=== PATIENT | male | born 1980 | race American Indian/Alaskan Native ===

== ENCOUNTER 2017-09-02 19:15 | Emergency (ER) | payer SELFPAY ==
--- NOTE | 2017-09-02 20:11 | XRay Report ---
FINAL REPORT PROCEDURE: XR SHOULDER 2+V LT TECHNIQUE: LEFT shoulder radiographs including AP views in internal and external rotation and abduction. CPT 60514 HISTORY: shoulder deformitiy COMPARISON: No prior studies are available for comparison. FINDINGS: Fracture (s) and/or Dislocation(s): Anterior-inferior dislocation of left glenohumeral joint is noted. An acute fracture is not identified.. Joint space(s): Normal . Soft tissues: Normal . Bone mineralization: Normal . Foreign bodies: None . IMPRESSION: Glenohumeral dislocation.
[2017-09-02] MEDS ORDERED: KETALAR IV ONE (20:23)
[2017-09-02] MEDS ORDERED: DIPRIVAN 10 MG/ML IV ONE (20:23)
--- NOTE | 2017-09-02 20:24 | Emergency Department Report ---
HPI - General Chief Complaint: Shoulder Injury - HPI HPI: This is a 37-year-old male presents to the emergency department with left shoulder pain and suspected dislocation after the patient was playing basketball and was swatting at the basketball. All of a sudden he had a sharp pain and decreased range of motion. He has no previous history of dislocation. He denies any past medical history. He is right-hand dominant. He did not take anything for symptoms prior to presentation. ED Past Medical Hx - Past Medical History Previous Medical History?: No - Surgical History Past Surgical History?: Yes Additional Surgical History: hernia - Social History Smoking Status: Never Smoker Substance Use Type: None - Medications Home Medications: Home Medications Medication Instructions Recorded Confirmed Last Taken Type No Known Home Medications [No 09/02/17 09/02/17 Unknown History Reported Home Medications] ED Review of Systems ROS: Stated complaint: DISLOCATED SHOULDER Other details as noted in HPI Comment: All other systems reviewed and negative Constitutional: denies: chills, fever Eyes: denies: eye pain, eye discharge, vision change ENT: denies: ear pain, throat pain Respiratory: denies: cough, shortness of breath, wheezing Cardiovascular: denies: chest pain, palpitations Gastrointestinal: denies: abdominal pain, nausea, diarrhea Genitourinary: denies: urgency, dysuria Musculoskeletal: arthralgia. denies: back pain Skin: denies: rash, lesions Neurological: denies: headache, weakness, paresthesias Physical Exam - Physical Exam Vital Signs: Vital Signs 09/02/17 19:34 Temperature 97.6 F Pulse Rate 96 H Respiratory 18 Rate Blood Pressure 136/73 O2 Sat by Pulse 98 Oximetry Physical Exam: GENERAL: The patient is well-developed well-nourished. HENT: Normocephalic. Atraumatic. Patient has moist mucous membranes. EYES: Extraocular motions are intact. Pupils equal reactive to light bilaterally. NECK: Supple. Trachea is midline. CHEST/LUNGS: Clear to auscultation. There is no respiratory distress noted. HEART/CARDIOVASCULAR: Regular. There is no tachycardia. There is no murmur. ABDOMEN: Abdomen is soft, nontender. Patient has normal bowel sounds. There is no abdominal distention. SKIN: Skin is warm and dry. NEURO: The patient is awake, alert, and oriented. The patient is cooperative. The patient has no focal neurologic deficits. The patient has normal speech and gait. MUSCULOSKELETAL: There is some tenderness palpation to the left shoulder. He is holding the left arm against his body and internal rotation. Decreased range of motion of the left arm secondary to pain. Radial pulse +2 over 4 bilaterally. Cap refill less than 2 seconds. ED Course Vital Signs 09/02/17 19:34 Temperature 97.6 F Pulse Rate 96 H Respiratory 18 Rate Blood Pressure 136/73 O2 Sat by Pulse 98 Oximetry - Moderate Sedation Indications: fracture/dislocation redu ASA Class: I Mallampati Airway Score: 1 Preparation: monitor worker applied, pulse oximeter, capnometry used, supplemental O2 applied, suction/airway equipment at bedside, IV secured Ketamine: IV Ketamine Dose: 50 IV Propofol Dose (mgs): 50 Complications: none Patient Tolerated Procedure: well - Orthopedic Joint Reduction Joint #1 Consent Obtained: written consent Time Out Performed: Yes Side: left Joint Reduction Location: shoulder Analgesia: moderate sedation Shoulder Technique Used (if applicable): traction/counter-traction, external rotation Post-Reduction Neuro Exam: intact Post-Reduction Vascular Exam: intact Post Reduction X-Ray Obtained: Yes Post Reduction X-Ray Results: reduced Splint Applied: Yes Patient Tolerated Procedure: well ED Medical Decision Making - Radiology Data Radiology results: image reviewed interpreted by me: Left shoulder x-ray #1 shows a anterior inferior glenohumeral head dislocation Left shoulder x-ray #2 shows appropriate reduction of the humerus into the glenohumeral joint. - Medical Decision Making Patient presents with a left shoulder dislocation. No obvious fracture. There was appropriate monitoring and the patient had moderate sedation with success. I used some traction and external rotation and there was successful reduction of the dislocation. This was confirmed with x-ray. The patient was monitored for another 30 minutes and he has fully come out of any type of sedation. He is in a shoulder immobilizer and realizes he should stay in that until follow- up with orthopedist. Given multiple orthopedist referrals. He is neurovascularly intact both before and after the procedure. Vital signs stable. - Differential Diagnosis fracture, dislocation, contusion, sprain, strain Critical Care Time: No Critical care attestation.: If time is entered above; I have spent that time in minutes in the direct care of this critically ill patient, excluding procedure time. ED Disposition Clinical Impression: Dislocation of left shoulder joint Qualifiers: Encounter type: initial encounter Qualified Code(s): S43.005A - Unspecified dislocation of left shoulder joint, initial encounter Disposition: TO HOME OR SELFCARE Is pt being admited?: No Condition: Stable Instructions: Shoulder Dislocation (ED) Additional Instructions: Please follow up with an orthopedist in the next few days. Stay in the shoulder sling/immobilizer until follow-up with the orthopedist. I have given you a few different referrals. You can use ice for the inflammation but not directly against the skin. Return to the emergency Department with any worsening of your symptoms or any acute distress. Referrals: TRE HERNANDEZ MD [Staff Physician] - 3-5 Days [facility] [Provider Group] - 3-5 Days Time of Disposition: 22:03
--- NOTE | 2017-09-02 21:34 | XRay Report ---
FINAL REPORT PROCEDURE: XR SHOULDER 1V LT TECHNIQUE: LEFT shoulder radiograph, single frontal view. HISTORY: post left shoulder reduction COMPARISON: No prior studies are available for comparison. FINDINGS: Fracture(s): None. Joint space(s): Normal. Soft tissues: Normal. Bone mineralization: Normal. Foreign bodies: None. IMPRESSION: Normal Examination
[2017-09-02] MEDS: TORADOL IV ONE ×2 (22:32→22:50)
[2017-09-02] MEDS ORDERED: MOTRIN ONE (22:39)
[2017-09-02 22:49] VITALS: BP 145/88
[2017-09-02] MEDS ORDERED: MOTRIN PO ONE (22:51)
== END 2017-09-02 22:52 | disposition home or self-care (01) ==
LOC: ED 19:15
DX: S43.005A Unspecified dislocation of left shoulder joint, initial encounter (principal); X58.XXXA Exposure to other specified factors, initial encounter; Y93.67 Activity, basketball; Y92.89 Other specified places as the place of occurrence of the external cause; Y99.8 Other external cause status
CPT/HCPCS: 23650; 73020; 73030; 99284; J2704; J1885